=== PATIENT | female | born 1980 | race Caucasian/White ===

== ENCOUNTER 2025-04-30 05:40 | Day surgery (SDC) | payer BC ==
[~2025-04-30] VITALS: Ht 167.6 cm; Wt 109.0 kg
[~2025-04-30 05:40] MED LIST: CELEBREX200 MG PO; CELECOXIB200 MG PO; DICLOFENAC SODI75 MG PO; GABAPENTIN300 MG PO; HALCION0.25 MG PO; HYDROCODON-ACE1 EA10 PO; LACTATED RINGER'S 1,000 ML IV SCH; LYRICA25 MG PO; MAGNESIUM500 MG PO; MULTIVITAMIN1 EACH PO; OXYCODONE HCL5 MG PO; SENNA LAX8.6 MG PO; VITAMIN C1000 MG PO; XARELTO10 MG PO
[2025-04-30 06:08] VITALS: BP 121/66
[2025-04-30] MEDS ORDERED: LIDOCAINE HCL 2% 5 ML SDV ONE (06:22)
[2025-04-30] MEDS ORDERED: Ropivacaine HCl 0.5% 30 ML VIAL ONE ×2 (06:23→08:19)
[2025-04-30] MEDS ORDERED: DEXAMETHASONE SOD PHOS 10 MG/ML VIAL ONE (06:28)
[2025-04-30] MEDS ORDERED: MIDAZOLAM HCL 2 MG/2 ML VIAL ONE (06:37)
[2025-04-30] MEDS ORDERED: fentaNYL citrate 100 MCG/2 ML VIAL ONE (06:56)
[2025-04-30] MEDS ORDERED: IBLOOD GLUCOSE TEST STRIP 1 EA TEST VI PRN ×2 (07:00→07:30)
[2025-04-30] MEDS ORDERED: LIDOCAINE HCL 1% 5 ML SDV INJ ONE (07:00)
[2025-04-30] MEDS ORDERED: CEFAZOLIN SODIUM 2 GM in SODIUM CHLORIDE 0.9% 100 ML IV SCH (07:00)
[2025-04-30] MEDS ORDERED: ACETAMINOPHEN 1,000 MG/100 ML VIAL ONE (07:29)
[2025-04-30] MEDS ORDERED: fentaNYL citrate 50 MCG/ML SDV IV PRN (07:30)
[2025-04-30] MEDS ORDERED: NALOXONE HCL 0.4 MG SYR IV PRN (07:30)
[2025-04-30] MEDS ORDERED: HYDROmorphone HCL 1 MG/ML SYR IV PRN (07:30)
[2025-04-30] MEDS ORDERED: HYDROCODONE/ACETA 7.5/325 TAB PO PRN (07:45)
[2025-04-30] MEDS ORDERED: fentaNYL citrate 50 MCG/ML SDV ONE (07:45)
[2025-04-30] MEDS ORDERED: HYDROCODON-ACE1 EA11 PO (07:50)
[2025-04-30] MEDS ORDERED: DICLOFENAC SODI75 MG PO (07:50)
--- NOTE | 2025-04-30 07:52 | NUR ---
04/30/25 0752 Jodie Lu 0739-PATIENT ARRIVED TO PACU ON 6L MASK RR EVEN NONAROUSABLE AND THEN BECOMES REACTIVE ORAL AIRWAY REMOVED AT 0740. ORIENTED PATIENT TO PACU. BOOT TO RIGHT FOOT SR HR 70'S. IVF INFUSING. 0743-PATIENT REPORTING PAIN "9" WHEN ASKED EYES CLOSED REMAINS DROWSY. ABLE TO SLIGHTLY WIGGLE TOES ON RIGHT FOOT. 0746-MEDICATED PER EMAR ON RA 99% RR EVEN. PATIENT A LITTLE TEARFUL ASKING "AM I A BABY" ENCOURAGED TO REST. 0751-PATIENT ON RA 94% RR EVEN. REPORTING PAIN TO RIGHT ANKLE PALPABLE PEDAL PULSE. GOOD CAP REFILL AND WARMTH.
[2025-04-30] MEDS ORDERED: LIDOCAINE HCL 2% 20 MG/ML VIAL INJ ONE (08:22)
[2025-04-30 09:00] VITALS: BP 121/64
--- NOTE | 2025-04-30 09:00 | NUR ---
PT ARRIVES TO DS VIA STRETCHER FROM PACU. PT IS DROWSY, RESPONSIVE TO TACTILE STIMULI. PT RESTING W/EYES CLOSED, RESPIRATIONS EVEN AND UNLABORED, NO SIGNS OF DISTRESS. REPORT RECEIVED FROM MAHNAZ NAIR W/FAMILY AT BEDSIDE. CALL LIGHT WITHIN REACH. ICE WATER AT BEDSIDE.
--- NOTE | 2025-04-30 09:48 | NUR ---
PT RESTING W/EYES CLOSED, RESPIRATIONS EVEN AND UNLABORED. SPOUSE IS AT BEDSIDE. CALL LIGHT WITHIN REACH. CPOX IN PLACE, O2 SATS >90% VIA RA.
[2025-04-30 10:14] VITALS: BP 120/56
--- NOTE | 2025-04-30 10:15 | NUR ---
IN PT ROOM FOR VS AND ASSESSMENT D/T PT MORE AWAKE AT THIS TIME. PT REPORTS PAIN 7/10 IN RT ANKLE W/NO NUMBNESS AND CAN WIGGLE TOES W/SENSATION TO ALL TOES. ADDITIONAL PILLOW PROVIDED FOR STABILIZATION OF FOOT. ICE PACK REMAINS IN PLACE. PT TOLERATING PUDDING AND ICE WATER WITHOUT DIFFICULTY SWALLOWING OR ONSET OF NAUSEA, PRN PAIN MED GIVEN (SEE EMAR). PT RESTING W/EYES CLOSED, RESPIRATIONS EVEN AND UNLABORED, NO SIGNS OF DISTRESS. FAMILY AT BEDSIDE. CALL LIGHT WITHIN REACH.
--- NOTE | 2025-04-30 11:10 | NUR ---
IN PT ROOM FOR VS AND ASSESSMENT. PT REPORTS PAIN IS AT 5/10 AND TOLERABLE AT THIS TIME. SHE IS UNABLE TO LIFT LEG, BUT HAS SENSATION TO HER TOES AND ABLE TO WIGGLE TOES. PT REPORTS NEED TO URINE VOID. PT SITS AT EDGE OF BED AND REPORTS NO NAUSEA/DIZZINESS AT THIS TIME. PT STANDS/PIVOTS TO WC AND TO RESTROOM W/ ASSISTING IN RR. PT URINE VOIDS UNMEASURABLE AMOUNT. PT BACK TO ROOM AND GETTING DRESSED IN WC W/ ASSISTANCE. CALL LIGHT WITHIN REACH.
[2025-04-30 11:12] VITALS: BP 115/72
--- NOTE | 2025-04-30 11:42 | NUR ---
PT STATES SHE RECEIVED A PHONE CALL FROM [facility] STATING THEY CANNOT FILL THE PAIN MEDICATION. THIS RN CALLS PHARMACY AND SPEAKS W/PHARMACIST. VERIFIED WHAT MEDICATIONS PT IS CURRENTLY TAKING W/PHARMACIST. PRESCRIPTION NOW BEING FILLED. PT AND PT FAMILY UPDATED. DC EDUCATION PROVIDED. PT AND PT FAMILY STATE NO FURTHER QUESTIONS OR NEEDS AT THIS TIME. PT OFF OF UNIT VIA WC, STAND/PIVOT TO VEHICLE. ALL BELONGINGS IN PT POSSESSION AT THIS TIME. ICE PACK AND WATER PROVIDED.
[2025-04-30] MEDS ORDERED: SEVOFLURANE 250 ML BTL INH ONE (13:46)
[2025-04-30] MEDS ORDERED: DICLOFENAC SOD 75 MG TABEC PO SCH (21:00)
--- NOTE | 2025-05-01 06:49 | OR ---
[facility] [address], [place] [address] Signed DATE OF OPERATION: 04/30/2025 SURGEON: Marek Titus MD PREOPERATIVE DIAGNOSIS: Right lateral malleolus fracture displaced. POSTOPERATIVE DIAGNOSIS: Right lateral malleolus fracture displaced. PROCEDURE PERFORMED: Open reduction and internal fixation, right lateral malleolus. AIRPLANE TECHNICIAN: None. ANESTHESIA: General. BLOOD LOSS: 55 mL. IMPLANTS: 3 x 130 FibuLock with two locking screws. BRIEF HISTORY: Merary is a 45-year-old female who fell down some stairs fracturing her ankle. She had mild displacement, but it would probably heal with nonoperative treatment. However, she needed to return to work and activities, weightbearing and she could do this with fixation with the fibula. Risks, benefits, and alternatives were discussed with her and she understood and wished to proceed. DESCRIPTION OF PROCEDURE: Once consent was obtained, she was taken to the operating room. After adequate anesthesia, she was placed on the OR table. Hip bump was placed. The leg was then prepped and draped in a standard sterile fashion. The fibula was then marked out and 1 cm incision was made distal to the fibular tip. Blunt dissection was taken down to the bone. The short guidewire for the [employer] FibuLock system was then advanced from the tip of the FibuLock proximally across the fracture engaging the body of the fibula. The large reamer was then reamed distally. The reamer and guide arely were removed. The long Electronically Signed By: MAREK TITUS MD 05/01/25 0649 PATIENT NAME: MERARY HENDERSON OPERATIVE REPORT DATE OF : 84 REPORT #: [id number] PHYSICIAN: MAREK TITUS MD PCP: MAMIE YEE MD REPORT IS CONFIDENTIAL AND NOT TO BE RELEASED WITHOUT AUTHORIZATION [facility] [address], [place] [address] Signed guide arely was then advanced from the tip of the fibula into the center of the fibular medullary canal. This was advanced proximally. This was then over-reamed using the 3.1 reamer. The 3 x 130 FibuLock was then opened and placed through the distal hole. We did percutaneously clamp and reduced the fracture prior to the reaming. The FibuLock was then advanced until it was well-seated flush inside the bone. The two locking screws were placed, one lateral, one anterolateral. This was done under direct image intensifier guidance. The clamp was removed as was the insertion device. The FibuLock was completely inside the bone. The screws were appropriate length and well flushed. The wounds were then copiously irrigated with antibiotic solution. It should be noted prior to placing the screws that we did deploy the pins proximally. The wounds were then closed using isaura and dressed with Allevyn dressing and an Dc wrap and she was placed into a fracture boot. She tolerated the procedure well. All sponge, needle, and instrument counts correct. Marek Titus MD BA/MODL /[id number] Copies: ~ Electronically Signed By: MAREK TITUS MD 05/01/25 0649 PATIENT NAME: MERARY HENDERSON OPERATIVE REPORT DATE OF : 84 REPORT #: [id number] PHYSICIAN: MAREK TITUS MD PCP: MAMIE YEE MD REPORT IS CONFIDENTIAL AND NOT TO BE RELEASED WITHOUT AUTHORIZATION
== END 2025-04-30 12:05 | disposition home or self-care (01) ==
LOC: DS 05:40
PROVIDERS: ATTEND Specialist
PROC: 0QSJ04Z Reposition Right Fibula with Internal Fixation Device, Open Approach (ICD-10-PCS; principal; 2025-04-30 07:00)
DX: S82.61XA Displaced fracture of lateral malleolus of right fibula, initial encounter for closed fracture (principal); W10.9XXA Fall (on) (from) unspecified stairs and steps, initial encounter; G89.18 Other acute postprocedural pain; Z88.8 Allergy status to other drugs, medicaments and biological substances; Z79.899 Other long term (current) drug therapy
CPT/HCPCS: 01480; 64447; 73600; A9270; C1713; C1769; J0131; J0688; J1100; J1200; J2003; J2250; J2405; J2704; J2795; J3010; J7121